=== PATIENT | female | born 1930 | race Caucasian/White ===

== ENCOUNTER 2017-08-02 09:23 | Day surgery (SDC) | payer OTHER ==
[~2017-08-02] VITALS: Ht 154.9 cm; Wt 54.4 kg
[2017-08-02] MEDS ORDERED: IOHEXOL 350 MG/ML 50 ML BTL (for Cath Lab) OTHER ONE (09:24)
[2017-08-02 09:55] VITALS: BP 191/88; PULSE 64; RESP 18; TEMP 97.6; O2SAT 96
[2017-08-02] MEDS ORDERED: SODIUM BICARBONATE 100 MEQ in D5W 1000 ML IV SCH (10:00)
[2017-08-02] MEDS ORDERED: SENN8.6T36 PO (10:04)
[2017-08-02] MEDS ORDERED: ATOR80TA45 PO (10:04)
[2017-08-02] MEDS ORDERED: ASPI-516 PO (10:04)
[2017-08-02] MEDS ORDERED: GABA300C5 PO (10:04)
[2017-08-02] MEDS ORDERED: LANTINJ SQ (10:04)
[2017-08-02] MEDS ORDERED: METF500T4 PO (10:04)
[2017-08-02] MEDS ORDERED: SYMB160A INH (10:04)
[2017-08-02] MEDS ORDERED: AMLO10TA2 PO (10:04)
[2017-08-02] MEDS ORDERED: LISI2.5T3 PO (10:04)
[2017-08-02 10:33] LABS: BICARBONATE 30.9 MEQ/L (21.0-32.0); CALCIUM 10.1 MG/DL (8.5-10.1); CREATININE 0.84 MG/DL (0.50-1.00)
[2017-08-02] MEDS ORDERED: HEPARIN-NS/PF FLUSH BAG 1,000 ML IV FLUSH ONE (10:50)
[2017-08-02] MEDS ORDERED: MIDAZOLAM HCL 2 MG/2 ML VIAL ONE (10:50)
--- NOTE | 2017-08-02 10:50 | PD.VS.PN ---
Pre-operative Note Pre-operative diagnosis: PAD, R LE wounds Planned procedure: Aortogram w/ R LE angiogram and potential endovascular intervention Interval History: Pt has been feeling well, no problems Labs: Laboratory Results Test 08/02/17 09:50 Anion Gap 6 MEQ/L (5-15) Blood Urea Nitrogen 17 MG/DL (7-18) Creatinine 0.84 MG/DL (0.50-1.00) Random Glucose 180 MG/DL (74-106) Calcium Level 10.1 MG/DL (8.5-10.1) Sodium Level 140 MEQ/L (136-145) Potassium Level 5.1 MEQ/L (3.5-5.1) Chloride Level 103 MEQ/L (98-107) Carbon Dioxide Level 30.9 MEQ/L (21.0-32.0) Blood: none needed Imaging: will make in the OR Orders: NPO Post-operative destination: DOCU Operative site marked: Yes Consent: Informed consent has been obtained from [facility]. I have explained the procedure in detail and discussed the risks, benefits, and potential complications. All questions have been answered. Patient contact information: Daughter [phone] Trace Pennington MD Aug 02, 2017 10:50
[2017-08-02] MEDS ORDERED: HEPARIN SODIUM - IV 10,000 UNITS/10 ML VIAL ONE (10:51)
--- NOTE | 2017-08-02 11:59 | HHI.PR ---
cc: Trace Pennington MD Immediate Post Op Note Procedure Date: Aug 02, 2017 Pre Op Diagnosis: R LE PAD, tissue loss Post Op Diagnosis: R LE PAD, tissue loss Surgeon: Trace Pennington Saw Superintendent(s): none Procedure: 1. Aortogram w/ R LE angiogram 2. R SFA/popliteal orbital atherectomy and PAPER MACHINE BACKTENDER (5mm) 3. R PT PAPER MACHINE BACKTENDER (3mm) 4. L [place] WORKER Angioseal Findings: 1. Occluded distal SFA and popliteal artery 2. Occluded proximal PT 3. Successful recanalization and PAPER MACHINE BACKTENDER Complications: none Specimen(s) removed: none Estimated blood loss: 10mL Anesthesia: MAC Drains: None Patient to: Other (DOCU) Patient Condition: Good Date/Time of Procedure: SEE SURGICAL CARE RECORD Trace Pennington MD Aug 02, 2017 11:59
[2017-08-02] MEDS ORDERED: CLOPIDOGREL 75 MG TAB PO ONE (12:00)
--- NOTE | 2017-08-02 12:05 | CATHPROC ---
[employer] HIS Report Study Information Study Number Admission Scheduled Start Study Start [id number] Aug 02 2017 9:23AM 08/02/2017 Aug 02 2017 10:43AM [place] [facility] Cath Endovascular Study Admit Source Facility Department Other [facility] - Regional Property Manager Physician and Clinical Staff Initial MD Pennington, Trace Disposition Clerk Megha Anderson,ARTHUR Recorder Myron Walters,RT(R) ScrKendal Cervantes,RT(R) (BS) Procedures Performed Procedure Location (Site) Vessel Name Abdominal Angiogram Abd Aorta (A3) Aorta Abdominal Angiogram SFA (right) Femoral Art COMPRESSOR STATIONS SUPERINTENDENT SFA (right) Femoral Art COMPRESSOR STATIONS SUPERINTENDENT Tib, Post (right) Popliteal Wire insertion Fem Art (left) Femoral Art Equipment Time Notched Blade Loader Description Size Mfg Part Number Used/Scraped [id number] 10:51 ANGIO-DYNAMICS OMNI FLUSH 65CM CATHETER FR 4 Used *[id number] DBP- CARDIOVASCULAR CATHETER, STEALTH CLASSIC 11:27 [id number] Used SYSTEMS INC. 1.50MM *[id number] CARDIOVASCULAR VPR-GW-14 11:21 WIRE, FIRM (VIPER) 335 Used SYSTEMS INC. *[id number] INTRODUCER SET, 10:51 COOK INC. FR 5 [id number] *[id number] Used MICROPUNCTURE, STIFFENED CXI-4.0-35-135- 11:12 COOK/WALTER CATHETER, FR4 CXI SUPPORT FR 4 Used P-NS-0 *[id number] CATHETER, CXI SUPPORT 11:20 COOK/WALTER .018 [id number] Used STRAIGHT .018 150CM SHEATH, FR6 MARCO 1 FLEXOR [id number] 11:12 COOK/WALTER FR 6 Used 55CM *[id number] WIRE, GUIDE APPROACH LEAK INSPECTOR [id number] 11:12 COOK/WALTER 300CM Used MICROWIRE *[id number] 11:24 DAIG/[employer] [place] MEDICAL ANGIOSEAL, FR6 VIP FR 6 Used *[id number] 10:51 MEDLINE INDUSTRIES PACK, CCL CUSTOM * Used *[id number] 10:51 [employer] MEDICAL PRESSURE TUBING 48" 48" [id number] Used PSI-6F-11- 11:15 [employer] MEDICAL SHEATH, FR6.5 PRELUDE 11CM FR 6.5 038ACT Used *[id number] 2574 11:12 [employer] WIRE, SKY 260CM .035 260CM Used *[id number] 031333 11:12 [employer] MEDICAL WIRE, SKY 260CM .035 260CM Used *[id number] 10:51 NAMIC TUBING, HIGH PRESSURE 20" 20" Used *[id number] TUBING, PRESSURE INJECTION [id number] 10:51 NAMIC PACER 72" Used 72" *[id number] 10:51 NYCOMED OMNIPAQUE, 300 MG, 150ML 150ML [id number] Used 10:51 NYCOMED OMNIPAQUE, 300 MG, 50ML 50ML [id number] Used [id number] 10:51 AVANT MEDICAL BLANKET,WARM AIR CCL * Used *[id number] 10:51 TERUMO MEDICAL SHEATH, FR4 TERUMO (10CM) FR 4 Used *[id number] WIRE, ANGLED GLIDE .035 [id number] 10:51 TERUMO MEDICAL/WALTER 260CM Used 260CM *[id number] Equipment Model, Serial, Lot Number and Expiration Data Description Model Number Serial Number Lot Number Expiration Date ANGIOSEAL, FR6 VIP [id number] 04-19-2018 CATHETER, FR4 CXI SUPPORT [id number] 03-18-2020 CATHETER, CXI SUPPORT [id number] 05-05-2020 STRAIGHT .018 150CM SHEATH, FR6 MARCO 1 FLEXOR [id number] 03-25-2020 55CM WIRE, FIRM (VIPER) 335 [id number] 04-19-2019 WIRE, GUIDE APPROACH LEAK INSPECTOR [id number] 08-04-2021 MICROWIRE History: Current Medications Medication Dosage/Unit Route Frequency Last Date/Time Taken LIPITOR ASA LISINOPRIL History: Allergies Allergy Reaction No Known Drug Allergies History: Risk Factors Family History of Hypertension Dyslipidemia Previous NE Previous Heart Failure Premature CAD Yes Yes No No No Prior Valve Prior PCI Prior CABG Surgery No No No Cerebrovascular Peripheral Artery Chronic Lung On Dialysis Diabetes Diabetes Therapy Disease Disease Disease No No Yes Yes Yes Insulin History: Other Disease Selection Items COPD History: Other Current Smoker No Labs Glucose (mg/dl) Creatinine (mg/dl) 74.00-106.00 0.50-1.30 180 0.8 Na (meq/l) K (meq/l) Cl (meq/l) 136.00-145.00 3.50-5.10 98.00-107.00 140 5.1 103 CPK-MB (ng/ML) 0.50-3.60 Not Drawn Medication Medication Total Dose (Bolus/Oral) Medication Total Dosage/Unit 1% XYLOCAINE 20 mL FENTANYL 62.5 mcg HEPARIN 8000 units VERSED 2 mg Medications (Bolus/Oral) Medication Time Given Dosage/Unit Administered By Reason 1% XYLOCAINE 08/02/2017 10:59:23 AM 20 mL Trace Pennington 20 mL 1% XYLOCAINE given in lab by Trace Pennington in Left Groin via Subcutaneous. Ordered by Trace Pennington. VERSED 08/02/2017 10:59:30 AM 0.5 mg Adamy, Megha 0.5 mg VERSED given in lab by Megha Anderson RN via Peripheral IV. Ordered by Trace Pennington. FENTANYL 08/02/2017 11:00:13 AM 12.5 mcg Adamy, Megha 12.5 mcg FENTANYL given in lab by Megha Anderson RN via Peripheral IV. Ordered by Trace Pennington. HEPARIN 08/02/2017 11:11:44 AM 5000 units Megha Anderson 5000 units HEPARIN given in lab by Megha Anderson RN via Peripheral IV. Ordered by Trace Pennington. HEPARIN 08/02/2017 11:30:40 AM 3000 units Starla Andersonfer 3000 units HEPARIN given in lab by Megha Anderson RN via Peripheral IV. Ordered by Trace Pennington. FENTANYL 08/02/2017 11:31:53 AM 12.5 mcg Adamy, Megha 12.5 mcg FENTANYL given in lab by Megha Anderson RN via Peripheral IV. Ordered by Trace Pennington. VERSED 08/02/2017 11:34:18 AM 0.5 mg Adamy, Megha 0.5 mg VERSED given in lab by Megha Anderson RN via Peripheral IV. Ordered by Trace Pennington. FENTANYL 08/02/2017 11:35:46 AM 12.5 mcg Adamy, Megha 12.5 mcg FENTANYL given in lab by Megha Anderson RN via Peripheral IV. Ordered by Trace Pennington. VERSED 08/02/2017 11:44:03 AM 1 mg Adamy, Megha 1 mg VERSED given in lab by Megha Anderson RN via Peripheral IV. Ordered by Trace Pennington. FENTANYL 08/02/2017 11:45:23 AM 25 mcg Megha Anderson 25 mcg FENTANYL given in lab by Megha Anderson RN via Peripheral IV. Ordered by Trace Pennington. Medication (Drip) Medication Time Given Dosage/Unit Concentration/Unit Diluent (ml) Solution IV Solutions 08/02/2017 10:47:34 AM 50 mL (IV) NaCl .9 Patient arrived on IV Solutions in Left Antecubital via Peripheral IV. Pump/Drip Flow using NaCl .9. SODIUM BICARBONATE 08/02/2017 10:50:30 AM 18.75 mL/hr 150 1000 NaCl .9 DRIP Patient arrived on 18.75 mL/hr SODIUM BICARBONATE DRIP given by Trace Pennington in Left Antecubital vi a Peripheral IV. Pump/Drip Flow = 125 ml/hr using NaCl .9 with a concentration of 150 in 1000 ml. Ordered by Trace Pennington. Initial Case Assessment Cardiovascular Edema Present Skin color Skin None Normal Warm Dry Neurological State Oriented to time-place- Alert Moves all extremities person Respiration - General SpO2 (%) 97 Chronological Log Time Study Chronological Log 10:43:08 Patient arrived via Bed. 10:43:10 Patient Name, D.O.B, / Armband Verified By R.N. 10:43:11 Consent signed by the physician and the patient and verified by the Regional Property Manager staff. 10:47:22 Verbal Stimulation=2 Physical Stimulation=2 Airway=2 Respiration=2 TOTAL=8. (0=absent, 1=li mited, 2=present) 10:47:29 Patient has been NPO for More than 6Hrs. 10:47:30 Skin Breakdown- none per patient 10:47:30 Patient Warmer Placed on the Table. 10:47:32 Nu Prominences Protected 10:47:33 A # 20 IV was noted in the Antecubital (left). Grade = 0 10:47:34 Patient arrived on IV Solutions in Left Antecubital via Peripheral IV. Pump/Drip Flow using NaCl .9. 10:47:35 History and physical on the chart or being dictated. Assessment: Initial Case, Edema=None, Color=Normal, Skin = Warm, Dry 10:47:37 Neurological: State=Alert, Ox3, BECK Respiration: SpO2=97 % 10:47:54 MD arrived. Vitals capture started with the following parameters, Patient=Adult, Interval=5 min, Initial Pr yekmez=283 mmHg, 10:49:56 Deflation Rate=5 mmHg, Cuff placed on Right Ankle Patient arrived on 18.75 mL/hr SODIUM BICARBONATE DRIP given by Trace Pennington in Left Antecubi christiano via Peripheral 10:50:30 IV. Pump/Drip Flow = 125 ml/hr using NaCl .9 with a concentration of 150 in 1000 ml. Ordered by Trace Pennington. 10:51:11 HR=80 bpm, PYRP=711/97 mmhg, SpO2=99.0 %, Resp=7 B/min, Bower=2 10:55:39 HR=77 bpm, DHFG=834/112 mmhg, SpO2=96.0 %, Resp=32 B/min, Bower=2 10:56:31 Reference ECG taken Time Out. Correct patient, correct procedure, correct physician, power injector loaded, with co ntrast with surgical team 10:58:26 present. Time Out Concurred by MD and individual staff in procedure. 10:58:40 Case Start 10:59:23 20 mL 1% XYLOCAINE given in lab by Trace Pennington in Left Groin via Subcutaneous. Ordered b y Trace Pennington. 10:59:30 0.5 mg VERSED given in lab by Megha Anderson, ARTHUR via Peripheral IV. Ordered by Virgil Pennington. 11:00:13 12.5 mcg FENTANYL given in lab by Megha Anderson, ARTHUR via Peripheral IV. Ordered by Trace Pennington. 11:00:38 HR=78 bpm, KXRZ=900/92 mmhg, SpO2=97.0 %, Resp=20 B/min, Bower=2 11:02:21 Access site was Left Femoral Artery. A INTRODUCER SET, MICROPUNCTURE, STIFFENED FR 5 was advanced into the Fem Art (left) using the Percutaneous 11:03:12 technique. 11:03:35 A WIRE, ANGLED GLIDE .035 260CM 260CM was inserted via Fem Art (left). A SHEATH, FR4 TERUMO (10CM) FR 4 was exchanged in the Fem Art (left). This was necessary in ord er to 11:04:04 accomodate a larger catheter. A OMNI FLUSH 65CM CATHETER FR 4 was advanced over a wire. OMNIPAQUE, 300 MG, 150ML 150ML was us ed for 11:04:32 injections. 11:05:35 HR=70 bpm, NQPT=118/80 mmhg, SpO2=97.0 %, Resp=15 B/min, Bower=2 11:06:11 Through a OMNI FLUSH 65CM CATHETER FR 4, The Abdominal Aorta was injected with 10 cc's of c ontrast. 11:06:40 A WIRE, ANGLED GLIDE .035 260CM 260CM was inserted via Fem Art (left). 11:08:20 Wire removed 11:08:29 Through a catheter, The right fem was injected with 8 of contrast. 11:09:09 Through a OMNI FLUSH 65CM CATHETER FR 4, The right sfa was injected with 4 cc's of contrast . 11:09:46 Through a OMNI FLUSH 65CM CATHETER FR 4, The right pop was injected with 4 cc's of contrast . 11:10:08 Through a OMNI FLUSH 65CM CATHETER FR 4, The right tibials was injected with 4 cc's of cont rast. 11:10:36 HR=72 bpm, YPET=007/81 mmhg, SpO2=97.0 %, Resp=9 B/min, Bower=2 11:11:19 A WIRE, SKY 260CM .035 260CM was inserted via Fem Art (left). A SHEATH, FR6.5 PRELUDE 11CM FR 6.5 was exchanged in the Fem Art (left). This was necessary in order to 11:11:36 accomodate a larger catheter. 11:11:44 5000 units HEPARIN given in lab by Megha Anderson RN via Peripheral IV. Ordered by Trace Pennington. 11:15:35 HR=74 bpm, IFOS=355/89 mmhg, SpO2=97.0 %, Resp=14 B/min, Bower=2 A SHEATH, FR6.5 PRELUDE 11CM FR 6.5 was exchanged in the Fem Art (left). This was necessary in order to 11:15:59 accomodate a larger catheter. A CATHETER, FR4 CXI SUPPORT FR 4 was advanced over a wire. OMNIPAQUE, 300 MG, 150ML 150ML was u sed for 11:17:15 injections. 11:18:23 A WIRE, GUIDE APPROACH LEAK INSPECTOR MICROWIRE 300CM was inserted via Fem Art (left). 11:20:36 HR=71 bpm, YLYI=957/83 mmhg, SpO2=95.0 %, Resp=24 B/min, Bower=2 A CATHETER, CXI SUPPORT STRAIGHT .018 150CM .018 was advanced over a wire. OMNIPAQUE, 300 MG, 1 50ML 11:21:55 150ML was used for injections. 11:24:33 The previous wire was exchanged for a WIRE, FIRM (VIPER) 335. 11:24:40 Catheters was removed w/o difficulty 11:25:39 HR=73 bpm, TRUB=482/73 mmhg, SpO2=95.0 %, Resp=12 B/min, Bower=2 11:27:39 An CATHETER, STEALTH CLASSIC 1.50MM catheter was inserted into the SFA (right). 11:27:59 1.5 classic CSI in use in right SFA/POP. 11:30:36 HR=76 bpm, UQMP=983/100 mmhg, SpO2=91.0 %, Resp=12 B/min, Bower=2 11:30:40 3000 units HEPARIN given in lab by Megha Anderson RN via Peripheral IV. Ordered by Trace Pennington. 11:31:42 CSI Catheter was removed w/o difficulty 11:31:53 12.5 mcg FENTANYL given in lab by Megha Anderson RN via Peripheral IV. Ordered by Trace Pennington. 11:33:11 A 5mm * 20cm COOK advance balloon. was inserted over WIRE, FIRM (VIPER) 335 via the SFA ([facility]). 11:34:18 0.5 mg VERSED given in lab by Megha Anderson, ARTHUR via Peripheral IV. Ordered by Virgil Pennington. 11:34:42 In the SFA (right) a 5mm * 20cm Advance Cook balloon was inflated to ~8~ atms for ~120~ sec onds. 11:35:35 HR=77 bpm, RFQD=704/105 mmhg, SpO2=87.0 %, Resp=20 B/min, Bower=2 11:35:46 12.5 mcg FENTANYL given in lab by Megha Anderson, ARTHUR via Peripheral IV. Ordered by Trace Pennington. 11:39:24 Balloon Removed. 11:40:34 HR=61 bpm, OWCZ=157/85 mmhg, SpO2=98.0 %, Resp=11 B/min, Bower=2 11:41:21 A 3mm * 15cm COOK Advance was inserted over WIREYO (VIPER) 335 via the Tib, Post (right ). 11:42:23 In the Tib, Post (right) a 3mm * 15cm was inflated to ~8~ atms for ~60~ seconds. 11:44:03 1 mg VERSED given in lab by Megha Anderson, ARTHUR via Peripheral IV. Ordered by Alejandro Pennington. 11:45:20 Balloon Removed. 11:45:23 25 mcg FENTANYL given in lab by Megha Anderson, ARTHUR via Peripheral IV. Ordered by Trace Pennington. 11:45:37 HR=69 bpm, HAMI=737/92 mmhg, SpO2=96.0 %, Resp=14 B/min, Bower=2 11:49:40 Wire removed 11:49:50 A REGAN SKY 260CM .035 260CM was inserted via Fem Art (left). 11:50:09 Sheath removed; pressure applied to access site. 11:50:34 HR=64 bpm, JEQE=449/86 mmhg, SpO2=97.0 %, Resp=18 B/min, Bower=2 11:50:47 ANGIOSEAL, FR6 VIP FR 6 placement in the Fem Art (left) 11:50:59 Case End 11:55:41 HR=66 bpm, FDWS=783/74 mmhg, SpO2=97.0 %, Resp=8 B/min, Bower=2 11:57:49 Sterile dressing applied to site 11:57:50 No case complications noted. 11:57:52 Cine recording checked. 11:57:55 Contrast Scanned 12:00:38 HR=69 bpm, PVXA=991/76 mmhg, SpO2=95.0 %, Resp=21 B/min, Bower=2 End Study - Contrast Media Used In Study Contrast Total Opened (mL) Total Used (mL) Total Wasted (mL) Omnipaque 40 40 0 End Study - Maximum Contrast Load Max Contrast Load (mL) 340.1 End Study - Radiation Exposure Fluoro Time (minutes) 12.1 End Study - Patient Disposition Complications Transferred To No Telemetry Bed
--- NOTE | 2017-08-03 10:37 | MP ---
cc: REBECCA PENNINGTON MD DATE OF SURGERY 08/02/2017 PREOPERATIVE DIAGNOSIS Right lower extremity peripheral arterial occlusive disease with tissue loss. POSTOPERATIVE DIAGNOSIS Right lower extremity peripheral arterial occlusive disease with tissue loss. PROCEDURE 1. Aortogram 2. Right lower extremity angiogram. 3. Right SFA and popliteal orbital atherectomy and angioplasty. 4. Right posterior tibial artery angioplasty. 5. Left common femoral Angio-Seal. MEDICATIONS Rebecca Pennington MD ANESTHESIA Local with sedation INDICATIONS Mr. Mane is an 86-year lady who has peripheral arterial occlusive disease, nonpalpable pulses and right extremity wound. She is taken to the operating room for an angiographic evaluation and treatment. There is no prior catheter-based imaging available for my review. DESCRIPTION OF PROCEDURE Informed consent was obtained from the patient. She was taken to the operating room and placed supine on the operating room table and an appropriate time-out was taken to ensure the patient's identity, operative site and planned procedure. The administration of antibiotics was not necessary as this is a clean procedure without planned implantation of any foreign object. Everyone in the room agreed with the time-out and we proceeded. She was placed on the operating room table and bilateral groins were prepped and draped. The left groin was anesthetized with 1% lidocaine. A 21 gauge micropuncture needle was used to access the left common femoral artery. This was exchanged using Seldinger technique for micropuncture sheath through which a 0.035 Glidewire was used and the micropuncture sheath was exchanged for a 4-Taiwanese sheath. A VCF catheter was placed over the wire and through the sheath and aortogram and pelvic arteriograms was obtained. The Glidewire was reintroduced and navigated down the right common femoral artery and the VCF catheter was advanced over this. A right lower extremity arteriogram was obtained. The patient was systemically heparinized with 5000 units of IV heparin and approximately 30 minutes later, 3000 additional units were administered. The Glidewire was exchanged for a Gan wire and the VCF catheter and 4-Taiwanese sheath removed and a 6-Taiwanese 55 cm Dickson sheath was then introduced. This was placed down to the proximal SFA and a CXI catheter was placed over the Gan. The Gan was exchanged for a TOOL DESIGN DRAFTSPERSON wire and then over the TOOL DESIGN DRAFTSPERSON wire, but through the 0.035 CXI catheter was placed in a 0.018 CXI catheter. The TOOL DESIGN DRAFTSPERSON wire and the small CXI catheter were then advanced down to the popliteal artery through the SFA occlusion and into the posterior tibial artery. The CXI catheters were advanced over the wire and the wire was removed and an angiogram was obtained to confirm we were in the distal posterior tibial artery. The ViperWire was then introduced and both CXI catheters removed. The SFA and popliteal artery were atherectomized using the orbital atherectomy device and then postdilated with a 5-mm balloon. The completion angiogram showed an excellent result without any recoil extravasation or flow-limiting dissection. The posterior tibial artery was angioplastied with a 3 mm balloon. The completion angiogram showed excellent result without any recoil extravasation. The wire, catheter, and sheath were removed. The wound was closed with Angio-Seal. There were no complications. I was present and scrubbed for the entire procedure. INTERPRETATION OF IMAGES The patient's terminal aorta is patent. There are patent common iliac arteries, hypogastric arteries, and external iliac arteries bilaterally without any hemodynamically significant stenoses. The right common femoral artery is patent. The profunda is patent. The SFA proximally is patent. The mid SFA has a calcific appearing occlusion at the abductor canal and collaterals then reconstitute what appears to be a popliteal island with the distal popliteal artery occluded. The posterior tibial artery has predominant runoff to the foot. After orbital atherectomy and angioplasty of the SFA, there is no flow-limiting dissection and appears to be adequate perfusion without any recoil extravasation. The proximal posterior tibial artery was successfully angioplastied with a 3-mm balloon and there is in-line flow to the foot after angioplasty. MD DANTE Lea/FREDERICK /7:40 AM /10:13 AM
== END 2017-08-02 15:14 | disposition home or self-care (01) ==
LOC: HDOC 09:23 → HDIC 09:23 → HDOC 15:14
PROVIDERS: ATTEND Surgery
DX: I73.9 Peripheral vascular disease, unspecified (principal); E11.21 Type 2 diabetes mellitus with diabetic nephropathy; I10 Essential (primary) hypertension; E78.5 Hyperlipidemia, unspecified; Z79.4 Long term (current) use of insulin
CPT/HCPCS: 37225; 37228; 75625; 75710; 80048; 99152; 99153; C1714; C1725; C1751; C1760; C1769; C1893; G0269; J1644; J2250; J3010; J7070; Q9967